=== PATIENT | male | born 1955 | race Caucasian/White ===

== ENCOUNTER → 2018-03-30 | Outpatient (CLI) | payer MEDICARE, OTHER ==
[~2018-03-30] MED LIST: ACE325S; ACE500 PO; ADVAIR; ALLEVE; ALLO100T70 PO; ANUHC30T PR; ASPI-692 PO; ASPI-715 CHEW; AZIT500T47 PO; BUDE10.2 IH; BUDE10.2 INH; CARB-83 PO; CARB400T8 PO; CEFU250 PO; CYC10 PO; DIPH0.5D12 IM; DOC100 PO; FISH OIL1 CAP PO; KET10 PO; LEVE500T75 PO; LEVE500T88 PO; LOR5 PO; LOR5/325 PO; LOR75 PO; MULT1CAP41 PO; NAP375 PO; NAPR220C12 PO; ONDA4TAB PO; PER PO; PHEN100 PO; PHEN100C88 PO; PHEN60TA PO; PHEN60TA9 PO; PRE20 PO; PRED20TA6 PO; PROM12.546 PO; SIMV-49 PO; SULF-198 PO; [UNRECOGNIZED DRUG - CODE] PO; [UNRECOGNIZED DRUG - REMARK]
[2018-03-30 16:19] LABS: PLATELET COUNT, AUTOMATED 237 K/uL (150-450)
[2018-03-30 17:38] LABS: LDL CHOLESTEROL 86 mg/dl
== END ==
LOC: LAB 15:44
PROVIDERS: ATTEND Nurse Practitioner Family
DX: Z12.5 Encounter for screening for malignant neoplasm of prostate (principal); E78.5 Hyperlipidemia, unspecified; Z79.899 Other long term (current) drug therapy; G40.909 Epilepsy, unspecified, not intractable, without status epilepticus
CPT/HCPCS: 36415; 80177; 80185; 84443; 85025; G0103; 82040; 82247; 82310; 82374; 82435; 82465; 82565; 82947; 83718; 84075; 84132; 84153; 84155; 84295; 84450; 84460; 84478; 84520

== ENCOUNTER → 2018-05-10 | Outpatient (CLI) | payer MEDICARE, OTHER ==
[~2018-05-10] MED LIST changes: +GUAI120L3 PO; +HYDR28.33 TP; -LEVE500T75 PO; +LEVE500T9 PO; +PNEU0.5D3 IM; +SIMV-54 PO
[2018-05-10 14:28] LABS: PLATELET COUNT, AUTOMATED 191 K/uL (150-450)
--- NOTE | 2018-05-10 15:35 | RADIOLOGY IMAGING REPORT ---
FACILITY: [facility] PATIENT NAME: Ang Dickerson : 1955 MR: [id number] V: [id number] EXAM DATE: ORDERING PHYSICIAN: CARLOS JORDAN TECHNOLOGIST: Location: [facility] [place] Patient: Ang Dickerson : 1955 Visit/Account:[id number] Date of Sevice: 05/10/2018 CHEST PA LAT History: fever hypoxia FINDINGS: Comparison studies: Chest x-ray 05/14/2010 Tubes and Lines: None. Lungs and pleura: Well aerated. No evidence of focal consolidation or pleural effusions. Mediastinum: normal. Cardiac silhouette: normal . Osseous structures: There is heterotopic ossification along the inferior aspect of the right distal clavicle abutting the coracoid process and probably related to remote coracoclavicular ligament inju ry. This is unchanged. Remote left healed seventh rib fracture again noted. IMPRESSION: No acute cardiopulmonary pathology identified. Report Dictated By: David Sanchez MD at 05/10/2018 3:26 PM Report E-Signed By: David Sanchez MD at 05/10/2018 3:30 PM WSN:[email or web address]
== END ==
LOC: LAB 13:53
PROVIDERS: ATTEND Nurse Practitioner Family
DX: R50.9 Fever, unspecified (principal); R09.02 Hypoxemia
CPT/HCPCS: 36415; 71046; 85025

== ENCOUNTER → 2018-05-17 | Outpatient (CLI) | payer MEDICARE, OTHER ==
--- NOTE | 2018-05-17 10:10 | RADIOLOGY IMAGING REPORT ---
FACILITY: [facility] PATIENT NAME: Ang Dickerson : 1955 MR: [id number] V: [id number] EXAM DATE: ORDERING PHYSICIAN: CARLOS JORDAN TECHNOLOGIST: Location: [facility] - [place] Patient: Ang Dickerson : 1955 Visit/Account:[id number] Date of Sevice: 05/17/2018 EXAMINATION: Aorta ultrasound with duplex Doppler evaluation: 05/17/2018 8:43 AM HISTORY: Screening for abdominal aortic aneurysm. Smoking history. COMPARISON STUDIES: none FINDINGS: Aorta: Suprarenal: 2.5 x 2.3 cm Proximal infrarenal: 1.8 x 2.9 cm Mid infrarenal: 1.8 x 3.5 cm Distal infrarenal: 1.7 x 2.0 cm Proximal common iliacs: Right 0.9 cm; Left 1.1 cm Aorta wall: negative Aorta and proximal common iliac arteries are patent by duplex Doppler ultrasound. IVC: patent IMPRESSION: Mildly aneurysmal 3.5 cm infrarenal abdominal aorta. Report Dictated By: Dex Tong MD at 05/17/2018 9:33 AM Report E-Signed By: Dex Tong MD at 05/17/2018 9:35 AM WSN:[email or web address]
== END ==
LOC: US 01:32
PROVIDERS: ATTEND Nurse Practitioner Family
DX: Z13.6 Encounter for screening for cardiovascular disorders (principal); I71.4 Abdominal aortic aneurysm, without rupture
CPT/HCPCS: 93979

== ENCOUNTER → 2018-05-24 | Outpatient (CLI) | payer MEDICARE, OTHER ==
--- NOTE | 2018-05-24 19:33 | RADIOLOGY IMAGING REPORT ---
[place] [facility] [place] Ang Dickerson : 1955 MR: [id number] V: [id number] EXAM DATE: ORDERING PHYSICIAN: CARLOS JORDAN TECHNOLOGIST: Location: [facility] Patient: Ang Dickerson : 1955 Visit/Account:[id number] Date of Sevice: 05/24/2018 TESTICULAR HISTORY: Enlarged left hemiscrotum. COMPARISON: None. FINDINGS: Testes: Symmetric and unremarkable without mass lesion. Symmetric and unremarkable blood flow docume nted by color and Duplex Doppler ultrasound. Epididymides: Right unremarkable. 0.7 cm debris-filled cyst left head, most consistent with spermatoc rebeca. Blood flow is symmetric unremarkable in each epididymis by color Doppler ultrasound. Hydrocele: Moderate volume right, approximately 3.2 x 4.8 x 6.1 cm in greatest dimensions. Moderate t o large volume left, approximately 4.3 x 6.4 x 7.1 cm in greatest dimensions. Varicocele: None. Additional findings: None. IMPRESSION: 1. Moderate volume right and moderate to large volume left hydroceles as detailed above. 2. Subcentimeter debris-filled cyst left epididymal head, most consistent with spermatocele. Report Dictated By: Jean Pierre Wong MD at 05/24/2018 7:25 PM Report E-Signed By: Jean Pierre Wong MD at 05/24/2018 7:28 PM WSN:[id number]
== END ==
LOC: US 00:34
PROVIDERS: ATTEND Nurse Practitioner Family
DX: N43.3 Hydrocele, unspecified (principal)
CPT/HCPCS: 76870